=== PATIENT | female | born 2000 | race Caucasian/White ===

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

== ENCOUNTER 2020-04-23 13:02 | Emergency (ER) | payer SELFPAY ==
[2020-04-23] MEDS ORDERED: HYDROcodone 5MG/APAP 325MG 1 EA TAB PO ONE (13:23)
[2020-04-23] MEDS ORDERED: TETANUS,DIPHTHERIA,PERTUSSIS 1 EA SYG IM ONE (13:23)
--- NOTE | 2020-04-23 13:28 | ED.PDOC ---
History of Present Illness - General Chief Complaint: Skin/Abrasion/Tear Time Seen by Provider: 04/23/20 13:04 Source: patient, RN notes reviewed, Vital Signs reviewed Exam Limitations: no limitations - History of Present Illness Initial Comments: Pt presents for burn to bilateral thighs 3 days ago. States she was pouring hot tea and accidentally poured it onto her legs. Was wearing gym shorts at the time and had dickerson to bilateral anterior thighs. She has been putting a topical abx ointment on it and the size of the dickerson has improved greatly. Continues to have some pain so her friend told her she should come to ED to be evaluated. Denies fever, chills, NVD or other concerns. Allergies/Adverse Reactions: Allergies NO KNOWN ALLERGY Allergy (Verified 08/14/16 14:40) Home Medications: Ambulatory Orders Melatonin 10 mg PO BEDTIME 08/14/16 Acetaminophen W/ Codeine [Tylenol W/ CODEINE #3] 1 tablet PO Q6H PRN #20 04/23/20 Cephalexin Monohydrate [Keflex] 500 mg PO QID 10 Days #40 cap 04/23/20 Silver Sulfadiazine [Silvadene] 1 % TOP BID #1 tube 04/23/20 Review of Systems - Review of Systems Constitutional: Denies: chills, fever, weakness EENTM: Denies: nose congestion, throat pain, throat swelling Respiratory: Denies: cough, short of breath Cardiology: Denies: chest pain, palpitations, syncope Gastrointestinal/Abdominal: Denies: diarrhea, nausea, vomiting Genitourinary: States: no symptoms reported Musculoskeletal: Denies: back pain, neck pain Skin: States: see HPI Neurological: Denies: headache, paresthesia All other Systems: Reviewed and Negative Past Medical History (General) - Patient Medical History Hx Seizures: No Hx Stroke: No Hx Dementia: No Hx Asthma: Yes Hx of COPD: No Hx Cardiac Disorders: No Hx Congestive Heart Failure: No Hx Pacemaker: No Hx Hypertension: No Hx Thyroid Disease: No Hx Diabetes: No Hx Gastroesophageal Reflux: No Hx Renal Disease: No Hx Cancer: No Hx of HIV: No Hx Hepatitis C: No Hx MRSA: No - Vaccination History Hx Tetanus, Diphtheria Vaccination: Yes Hx Influenza Vaccination: No Hx Pneumococcal Vaccination: No - Social History Hx Tobacco Use: No Hx Chewing Tobacco Use: No Hx Alcohol Use: No Hx Substance Use: No Hx Substance Use Treatment: No Hx Depression: No Hx Physical Abuse: No Hx Emotional Abuse: No Hx Suspected Abuse: No - Female History Hx Last Menstrual Period: 07/01/16 Patient : No Family Medical History - Family History Grandparents Living Status: Still Living Hx Family Hypertension: Yes Hx Cardiac Disease: Yes - Hx CABG Hx Family Diabetes: Yes Physical Exam - Physical Exam General Appearance: Alert, Comfortable, No apparent distress Neck: non-tender, full range of motion, supple Respiratory: chest non-tender, lungs clear, normal breath sounds, no accessory muscle use Cardiovascular/Chest: regular rate, rhythm, no murmur Gastrointestinal/Abdominal: non tender, soft, no pulsatile mass Back Exam: no CVA tenderness, no vertebral tenderness Extremity: normal range of motion, no pedal edema, no calf tenderness Neurologic: no motor/sensory deficits, alert, normal mood/affect Skin Exam: other - Left anterior thigh has a 4x4 cm area of erythema. No vescicles, induration of drainage. There is a similar appearing area to right anterior thigh. Does not involve groin or vaginal area. Progress - Progress Progress: 04/23/20 13:30 Pt presents with partial thickness burn to BLE in anterior mid thigh region. No sign of cellulitis at this time. Update tetanus. Will start prophylactic abx, analgesia, topical ointment and f/u with pcp in 1-2 days for recheck. SRP given. Departure - Departure Clinical Impression: Partial thickness burn Time of Disposition: 13:32 Disposition: Discharge to Home or Self Care Condition: Good Departure Forms: ED Discharge - Pt. Copy, Patient Portal Self Enrollment Instructions: Skin Dickerson (DC) Diet: resume usual diet Activity: increase activity as tolerated Prescriptions: Acetaminophen W/ Codeine [Tylenol W/ CODEINE #3] 1 tablet PO Q6H PRN #20 PRN Reason: Pain Cephalexin Monohydrate [Keflex] 500 mg PO QID 10 Days #40 cap Silver Sulfadiazine [Silvadene] 1 % TOP BID #1 tube Home Medications: Ambulatory Orders Melatonin 10 mg PO BEDTIME 08/14/16 Acetaminophen W/ Codeine [Tylenol W/ CODEINE #3] 1 tablet PO Q6H PRN #20 04/23/20 Cephalexin Monohydrate [Keflex] 500 mg PO QID 10 Days #40 cap 04/23/20 Silver Sulfadiazine [Silvadene] 1 % TOP BID #1 tube 04/23/20
[2020-04-23 14:30] VITALS: BP 124/71; TEMP 98.6; O2SAT 98
== END 2020-04-23 14:28 | disposition home or self-care (01) ==
LOC: ER 13:02
DX: T24.211A Burn of second degree of right thigh, initial encounter (principal); T24.212A Burn of second degree of left thigh, initial encounter; T31.0 Burns involving less than 10% of body surface; X10.0XXA Contact with hot drinks, initial encounter; Y92.9 Unspecified place or not applicable

== ENCOUNTER 2020-06-27 22:57 | Emergency (ER) | payer SELFPAY ==
--- NOTE | 2020-06-27 23:07 | ED.PDOC ---
History of Present Illness - General Chief Complaint: Syncope/Near Syncope Stated Complaint: fainting most of day Time Seen by Provider: 06/27/20 23:07 Source: patient - History of Present Illness Initial Comments: 19 yo F comes in with the c.c of syncope 4-6 times today. States this happened when going form sitting to standing, in the shower and at work at [employer]. States she was told she was out 15 minutes. Does feel dizzy before passing out. Denies loss of urine or bowel. No seizure like activity described. Did not bite tongue. Denies cardiac hx. States her family hx is limited, but she is not aware of any cardiac or early spontaneous in her family. Denies hitting head. 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 Had an MRI of brain in 2018 which was normal. Does not have PCP. No chest pain, shortness of breath, n/v/d. no excessive sweating, weight loss, weight gain, edema. no recent travel or recent illness. Timing/Prior Episodes: multiple episodes today Precipitating Factors: lightheadedness Context: standing, activity Loss of Consciousness: prolonged (minutes) Allergies/Adverse Reactions: Allergies NO KNOWN ALLERGY Allergy (Verified 08/14/16 14:40) Home Medications: Ambulatory Orders Acetaminophen W/ Codeine [Tylenol W/ CODEINE #3] 1 tablet PO Q6H PRN #20 04/23/20 Cephalexin Monohydrate [Keflex] 500 mg PO QID 10 Days #40 cap 04/23/20 Silver Sulfadiazine [Silvadene] 1 % TOP BID #1 tube 04/23/20 Past Medical History (General) - Patient Medical History Hx Seizures: No Hx Stroke: No Hx Dementia: No Hx Asthma: Yes Hx of COPD: No Hx Cardiac Disorders: No Hx Congestive Heart Failure: No Hx Pacemaker: No Hx Hypertension: No Hx Thyroid Disease: No Hx Diabetes: No Hx Gastroesophageal Reflux: No Hx Renal Disease: No Hx Cancer: No Hx of HIV: No Hx Hepatitis C: No Hx MRSA: No - Vaccination History Hx Tetanus, Diphtheria Vaccination: Yes Hx Influenza Vaccination: No Hx Pneumococcal Vaccination: No - Social History Hx Tobacco Use: No Hx Chewing Tobacco Use: No Hx Alcohol Use: No Hx Substance Use: No Hx Substance Use Treatment: No Hx Depression: No Hx Physical Abuse: No Hx Emotional Abuse: No Hx Suspected Abuse: No - Female History Hx Last Menstrual Period: 07/01/16 Patient : No Progress - Progress Progress: EKG shows NSR HR 92, normal intervals, no ischemia, no delta wave or prolong qt. Will on the monitor I notice that patients has long pauses heart rate drops from 90s to 46. The change in heart rate is associated with p wave inversions, while her normal beats have upright p waves. This occurs more often while patient is moving. Orthostatics shows increased in heart rate from lying to sitting 88-103, but no change in blood pressure. Will check TSH, electrolytes in mg, hcg, cxr. Due to her history of periventricular nodular heterotopia ordered CT scan. Seizure precautions. Blood work grossly unremarkable. Discussed case with Dr. Cardona who accepted for transfer. The data reviewed when caring for this patient included: nurse notes, prior records etc. The history and assessments from nurses notes were reviewed and considered, and the patient's home medication list was also reviewed and considered. My assessment and the results of testing completed here in the ED were discussed with the patient. All questions were answered, and they express understanding of my assessment and the plan. She was transferred in stable condition. I have sent copies of the abnormal rhythm strip for accepting team to evaluate. - Results/Orders Results/Orders: CT head and brain without contrast: FINDINGS: Brain: No significant white matter changes. No focal mass effect. Harrison-white matter differentiation is within normal limits. No hemorrhage. Ventricles: No ventriculomegaly or midline shift. Extra-axial spaces: No extra-axial collection or hemorrhage. Paranasal sinuses and mastoid air cells: Minimal bilateral maxillary sinus mucosal thickening. Small left maxillary mucous retention cyst/polyp. Vessels: Unremarkable Bones: Unremarkable Soft tissues: Unremarkable IMPRESSION: No acute intracranial or extra-axial abnormality. Chest X-ray (2 view): no acute cardiopulmonary abnormalities. 06/27/20 23:15 EKG STAT 06/27/20 23:15 EKG STAT 06/27/20 23:16 Head [CT] Stat Chest,2 Views [RAD] Stat 06/27/20 23:18 Sodium Chloride 0.9% 1000ML [Ns 1000 ml] 1,000 ml IVS STAT 06/27/20 23:47 Vital Signs-Tilt PRN 06/28/20 00:14 KCl 20Meq/Water For Inj 100Ml [Potassium 20meq in Water 100ml] 20 meq Premix Bag 1 bag IVPB ONCE Laboratory Results WBC 6.4 K/mm3 (4.8-10.8) 06/27/20 23:36 RBC 4.62 M/mm3 (4.20-5.40) 06/27/20 23:36 Hgb 12.7 gm/dL (12.0-16.0) 06/27/20 23:36 Hct 37.5 % (36.0-47.0) 06/27/20 23:36 MCV 81.1 fl (81.0-99.0) 06/27/20 23:36 MCH 27.5 pg (27.0-31.0) 06/27/20 23:36 MCHC 34.0 g/dL (33.0-37.0) 06/27/20 23:36 RDW 14.8 % (11.5-14.5) H 06/27/20 23:36 Plt Count 289 K/mm3 (130-400) 06/27/20 23:36 MPV 6.7 fl (7.40-10.4) L 06/27/20 23:36 Absolute Neuts (auto) 4.40 K/uL (1.8-6.8) 06/27/20 23:36 Absolute Lymphs (auto) 1.50 K/uL (1.0-3.4) 06/27/20 23:36 Absolute Monos (auto) 0.40 K/uL (0.2-0.8) 06/27/20 23:36 Absolute Eos (auto) 0.00 K/uL (0.0-0.4) 06/27/20 23:36 Absolute Basos (auto) 0.00 K/uL (0.0-0.1) 06/27/20 23:36 Neutrophils % 68.5 % (42.0-78.0) 06/27/20 23:36 Lymphocytes % 24.2 % (20.0-50.0) 06/27/20 23:36 Monocytes % 6.4 % (2.0-9.0) 06/27/20 23:36 Eosinophils % 0.5 % (1.0-5.0) L 06/27/20 23:36 Basophils % 0.4 % (0.0-2.0) 06/27/20 23:36 PT 10.4 SECONDS (9.0-10.9) 06/27/20 23:36 INR 1.05 (0.9-1.15) 06/27/20 23:36 PTT (SP) 25.2 SECONDS (21.8-31.6) 06/27/20 23:36 Sodium 137 mmol/L (135-145) 06/27/20 23:36 Potassium 3.3 mmol/L (3.6-5.0) L 06/27/20 23:36 Chloride 106 mmol/L (101-111) 06/27/20 23:36 Carbon Dioxide 24 mmol/L (21-31) 06/27/20 23:36 Anion Gap 10.3 (12-18) L 06/27/20 23:36 BUN 10 mg/dL (7-18) 06/27/20 23:36 Creatinine 0.71 mg/dL (0.6-1.3) 06/27/20 23:36 BUN/Creatinine Ratio 14.1 (10-20) 06/27/20 23:36 POC Glucose 98 mg/dL (70-105) 06/27/20 23:08 Random Glucose 99 mg/dL (70-105) 06/27/20 23:36 Serum Osmolality 272.9 mOsm/L (275-295) L 06/27/20 23:36 Calcium 9.3 mg/dL (8.4-10.2) 06/27/20 23:36 Magnesium 1.8 mg/dL (1.8-2.5) 06/27/20 23:36 Total Bilirubin 0.5 mg/dL (0.2-1.0) 06/27/20 23:36 AST 20 IU/L (10-42) 06/27/20 23:36 ALT 14 IU/L (10-60) 06/27/20 23:36 Alkaline Phosphatase 40 IU/L (180-700) L 06/27/20 23:36 Troponin I < 0.02 ng/mL (0.01-0.05) 06/27/20 23:36 C-Reactive Protein < 0.5 mg/dL (0-1.0) 06/27/20 23:36 Serum Total Protein 7.7 gm/dL (6.4-8.2) 06/27/20 23:36 Albumin 4.4 g/dl (3.2-5.5) 06/27/20 23:36 Globulin 3.3 gm/dL (2.3-3.5) 06/27/20 23:36 Albumin/Globulin Ratio 1.3 (1.1-1.9) 06/27/20 23:36 TSH 0.77 uIU/mL (0.34-5.60) 06/27/20 23:36 Urine Color Yellow (Yellow) 06/27/20 23:36 Urine Appearance Cloudy (Clear) 06/27/20 23:36 Urine pH 7.5 (4.5-7.8) 06/27/20 23:36 Ur Specific [place] 1.020 (1.005-1.030) 06/27/20 23:36 Urine Protein Negative mg/dL 06/27/20 23:36 Urine Glucose (UA) Negative mg/dL (Negative) 06/27/20 23:36 Urine Ketones Trace mg/dL (NEGATIVE) 06/27/20 23:36 Urine Blood Negative (Negative) 06/27/20 23:36 Urine Nitrite Negative 06/27/20 23:36 Urine Bilirubin Negative (NEGATIVE) 06/27/20 23:36 Urine Urobilinogen 2.0 mg/dL (0.2-1.0) H 06/27/20 23:36 Ur Leukocyte Esterase Negative (Negative) 06/27/20 23:36 Urine RBC 0 /hpf 06/27/20 23:36 Urine WBC 3-5 /hpf H 06/27/20 23:36 Ur Epithelial Cells 5-10 /hpf 06/27/20 23:36 Urine Bacteria Rare 06/27/20 23:36 Urine Mucus Small 06/27/20 23:36 Urine HCG, Qual Negative (NEGATIVE) 06/27/20 23:36 Urine Opiates Screen Negative ng/mL (1999) 06/27/20 23:36 Urine Barbiturates Negative ng/mL (200) 06/27/20 23:36 Ur Phencyclidine Scrn Negative ng/mL (25) 06/27/20 23:36 U Amphetamin/Meth Scrn Negative ng/mL (1000) 06/27/20 23:36 U Benzodiazepines Scrn Negative ng/mL (200) 06/27/20 23:36 U Cocaine Metab Screen Negative ng/mL (300) 06/27/20 23:36 U Cannabinoids Screen Positive ng/mL (50) H 06/27/20 23:36 Ethyl Alcohol < 5.40 mg/dL (0-79) 06/27/20 23:36 - Consult/PCP Time Called: 00:20 Consult Reason/Comments: Dr. Cardona Departure - Departure Clinical Impression: Ectopic beat, atrial, Hypokalemia Syncope Qualifiers: Syncope type: unspecified Qualified Code(s): R55 - Syncope and collapse Disposition: Transfer to Hospital Condition: Fair Departure Forms: ED Discharge - Pt. Copy, Patient Portal Self Enrollment Home Medications: Ambulatory Orders Acetaminophen W/ Codeine [Tylenol W/ CODEINE #3] 1 tablet PO Q6H PRN #20 04/23/20 Cephalexin Monohydrate [Keflex] 500 mg PO QID 10 Days #40 cap 04/23/20 Silver Sulfadiazine [Silvadene] 1 % TOP BID #1 tube 04/23/20 Transfer to Outside Facility - Transfer Information Decision to Transfer Date: 06/28/20 Decision to Transfer Time: 00:10 Reason for Transfer: specialized care not available - cardiology Accepting Facility: [facility]
[2020-06-27] MEDS ORDERED: SODIUM CHLORIDE 0.9% (FLUSH) 10 ML SYG ONE (23:29)
[2020-06-27] MEDS: SODIUM CHLORIDE 0.9% 1000ML 1,000 ML IVS PRN (23:40)
[2020-06-28] MEDS: KCL 20MEQ/WATER FOR INJ 100ML 20 MEQ in PREMIX BAG 1 BAG IVPB ONE (00:27)
[2020-06-28 00:59] VITALS: TEMP 97.9; O2SAT 100
[2020-06-28] MEDS ORDERED: SODIUM CHLORIDE 0.9% 1000ML 1,000 ML ONE (01:19)
[2020-06-28 04:12] VITALS: BP 123/78
--- NOTE | 2020-06-28 05:30 | RAD ---
EXAM: XR Chest, 2 Views CLINICAL HISTORY: The patient is 19 years old and is Female; shortness of breath TECHNIQUE: Frontal and lateral views of the chest. COMPARISON: No relevant prior studies available. FINDINGS: LUNGS: Unremarkable. No consolidation. PLEURAL SPACE: Unremarkable. No pneumothorax. HEART: No significant enlargement of the cardiac silhouette. MEDIASTINUM: Unremarkable. BONES/JOINTS: No acute osseous findings. IMPRESSION: No acute findings visualized in the chest. Electronically signed by: Belia Veliz MD 06/28/2020 12:28 AM CDT
--- NOTE | 2020-06-28 05:30 | CT ---
PROCEDURE: CT HEAD WITHOUT IV CONTRAST CLINICAL HISTORY: hx of brain tumor TECHNIQUE: Contiguous axial CT images obtained through the brain without IV contrast. Coronal and sagittal reformatted images were provided. This exam was performed according to our departmental dose-optimization program, which includes automated exposure control, adjustment of the mA and/or kV according to patient size and/or use of iterative reconstruction technique. COMPARISON: Correlation is made with brain MR dated 11/25/2018 FINDINGS: Brain: No significant white matter changes. No focal mass effect. Harrison-white matter differentiation is within normal limits. No hemorrhage. Ventricles: No ventriculomegaly or midline shift. Extra-axial spaces: No extra-axial collection or hemorrhage. Paranasal sinuses and mastoid air cells: Minimal bilateral maxillary sinus mucosal thickening. Small left maxillary mucous retention cyst/polyp. Vessels: Unremarkable Bones: Unremarkable Soft tissues: Unremarkable IMPRESSION: No acute intracranial or extra-axial abnormality. Electronically signed by: Marian Cabral MD 06/28/2020 12:27 AM CDT
== END 2020-06-28 01:19 | disposition short-term general hospital (02) ==
LOC: ER 22:57
DX: I49.1 Atrial premature depolarization (principal); R55 Syncope and collapse; E87.6 Hypokalemia; R42 Dizziness and giddiness; F12.90 Cannabis use, unspecified, uncomplicated; J45.909 Unspecified asthma, uncomplicated
CPT/HCPCS: 36415; 70450; 71046; 80053; 80307; 80320; 81001; 81025; 82948; 83735; 84443; 84484; 85025; 85610; 85730; 86140; 87635; 93005; A4216; J3480; J7030

== ENCOUNTER 2020-12-09 11:00 | Emergency (ER) | payer SELFPAY ==
[2020-12-09] MEDS ORDERED: HYDROcodone 10MG/APAP 325MG 1 EA TAB PO ONE (11:50)
--- NOTE | 2020-12-09 11:59 | ED.PDOC ---
History of Present Illness - General Chief Complaint: Laceration Stated Complaint: laceration to lip,syncopal episode Time Seen by Provider: 12/09/20 11:47 Source: patient, family Additional Information: 20F with PMH significant for pseudotumor cerebri presents to the ED with syncopal episode and lip laceration. States that she has recurrent syncopal episodes related to positional changes including bending forward or rising from sleeping/sitting too quicly. She states that today she stood and started to feel dizzy and fell, hitting her head and face. She reports only brief LOC for a second or two if any. She denies any chest pain, palpitations, or shortness of breath. She complains of laceration to lip. No neck pain. no weakness, numbness or tingling. No other complaints at this time. - History of Present Illness Allergies/Adverse Reactions: Allergies NO KNOWN ALLERGY Allergy (Verified 08/14/16 14:40) Home Medications: Ambulatory Orders Cephalexin 500 mg PO BID #14 cap 12/09/20 Review of Systems - Review of Systems Constitutional: Denies: chills, fever EENTM: States: mouth pain - dental pain, laceration. Denies: eye pain, nose pain Respiratory: Denies: cough, short of breath Cardiology: Denies: chest pain, palpitations Gastrointestinal/Abdominal: Denies: abdominal pain, diarrhea, nausea, vomiting Genitourinary: Denies: discharge, dysuria, frequency Musculoskeletal: States: no symptoms reported Skin: States: no symptoms reported Neurological: Denies: headache, numbness, paresthesia, tingling, tremors, weakness Endocrine: States: no symptoms reported Hematologic/Lymphatic: States: no symptoms reported All other Systems: Reviewed and Negative Past Medical History (General) - Patient Medical History Hx Seizures: No Hx Stroke: No Hx Dementia: No Hx Asthma: Yes Hx of COPD: No Hx Cardiac Disorders: No Hx Congestive Heart Failure: No Hx Pacemaker: No Hx Hypertension: No Hx Thyroid Disease: No Hx Diabetes: No Hx Gastroesophageal Reflux: No Hx Renal Disease: No Hx Cancer: No Hx of HIV: No Hx Hepatitis C: No Hx MRSA: No Surgical History: no surgical history - Vaccination History Hx Tetanus, Diphtheria Vaccination: Yes - 04/19 Hx Influenza Vaccination: No Hx Pneumococcal Vaccination: No - Social History Hx Tobacco Use: No Hx Chewing Tobacco Use: No Hx Alcohol Use: No Hx Substance Use: No Hx Substance Use Treatment: No Hx Depression: No Hx Physical Abuse: No Hx Emotional Abuse: No Hx Suspected Abuse: No - Female History Hx Last Menstrual Period: 07/01/16 Patient : No Family Medical History - Family History Grandparents Living Status: Still Living Hx Family Hypertension: Yes Hx Cardiac Disease: Yes - Hx CABG Hx Family Diabetes: Yes Physical Exam - Physical Exam General Appearance: Anxious, No apparent distress Ears, Nose, Throat: hearing grossly normal, other - 1cm laceration to lower lip. Not through and through. Does not cross vermilion border. 0.5cm laceration to mucosal surface. Poor dentition but patient reports baseline, no loose teeth. Neck: non-tender, full range of motion, supple, normal inspection Respiratory: chest non-tender, lungs clear, normal breath sounds Cardiovascular/Chest: normal peripheral pulses, regular rate, rhythm Gastrointestinal/Abdominal: non tender, soft Neurologic: clinical studies specialist II-XII nml as tested, no motor/sensory deficits, alert, normal mood/affect, oriented x 3 Skin Exam: normal color Progress - Progress Progress: 12/09/20 13:08 Patient reassessed, feels better after analgesia. Laceration is not through and through and does not involve vermilion border, will allow to heal without suture repair. She has urinary tract infection. Will start augmentin for oral laceration infection prophylaxis and UTI. She will follow up with dentistry and her PCP, return to ED as needed. Home care instructions and return indications reviewed. - Results/Orders Results/Orders: 12/09/20 12:09 URINE CULTURE W/COLONY COUNT Stat Laboratory Results - last 24 hr 12/09/20 12/09/20 12/09/20 11:55 11:55 11:55 WBC 7.9 RBC 4.74 Hgb 12.9 Hct 38.3 MCV 80.9 L MCH 27.3 MCHC 33.7 RDW 15.4 H Plt Count 309 MPV 7.0 L Absolute Neuts (auto) 6.20 Absolute Lymphs (auto) 1.20 Absolute Monos (auto) 0.40 Absolute Eos (auto) 0.00 Absolute Basos (auto) 0.10 Neutrophils % 78.7 H Lymphocytes % 15.3 L Monocytes % 4.5 Eosinophils % 0.3 L Basophils % 1.2 Sodium 136 Potassium 3.9 Chloride 104 Carbon Dioxide 23 Anion Gap 12.9 BUN 13 Creatinine 0.80 BUN/Creatinine Ratio 16.3 Random Glucose 121 H Serum Osmolality 273.3 L Calcium 9.6 Serum HCG, Qual Negative Urine Color Urine Appearance Urine pH Ur Specific [place] Urine Protein Urine Glucose (UA) Urine Ketones Urine Blood Urine Nitrite Urine Bilirubin Urine Urobilinogen Ur Leukocyte Esterase Urine RBC Urine WBC Ur Epithelial Cells Urine Bacteria Urine Mucus 12/09/20 12:09 WBC RBC Hgb Hct MCV MCH MCHC RDW Plt Count MPV Absolute Neuts (auto) Absolute Lymphs (auto) Absolute Monos (auto) Absolute Eos (auto) Absolute Basos (auto) Neutrophils % Lymphocytes % Monocytes % Eosinophils % Basophils % Sodium Potassium Chloride Carbon Dioxide Anion Gap BUN Creatinine BUN/Creatinine Ratio Random Glucose Serum Osmolality Calcium Serum HCG, Qual Urine Color Yellow Urine Appearance Cloudy H Urine pH 6.0 Ur Specific [place] >= 1.030 Urine Protein Negative Urine Glucose (UA) Negative Urine Ketones Trace Urine Blood Negative Urine Nitrite Positive H Urine Bilirubin Negative Urine Urobilinogen 0.2 Ur Leukocyte Esterase Negative Urine RBC 0 Urine WBC 0 Ur Epithelial Cells 1-3 Urine Bacteria 4+ H Urine Mucus Moderate Medical Decision Making: The patient presents with lip laceration, syncope. Has recurrent positional/orthostatic syncope. No focal neurologic deficits or lateralizing findings. No through and through laceration and does not involve vermilion border. No active bleeding. Will continue local wound care, no suture required at this time. Antibiotics for infection prevention and urinary tract infection. Discussed detailed wound care, outpatient follow up and return indications. Departure - Departure Clinical Impression: Syncope Qualifiers: Syncope type: unspecified Qualified Code(s): R55 - Syncope and collapse Urinary tract infection Qualifiers: Urinary tract infection type: acute cystitis Hematuria presence: without hematuria Qualified Code(s): N30.00 - Acute cystitis without hematuria Lip laceration Qualifiers: Encounter type: initial encounter Qualified Code(s): S01.511A - Laceration without foreign body of lip, initial encounter Time of Disposition: 13:10 Disposition: Discharge to Home or Self Care Condition: Good Departure Forms: ED Discharge - Pt. Copy, ED Discharge - Work Release, Patient Portal Self Enrollment, Work Release Form Instructions: DI for Laceration Repair, Syncope (Fainting) (DC), Vasovagal Response (DC) Diet: resume usual diet Activity: increase activity as tolerated Prescriptions: Cephalexin 500 mg PO BID #14 cap Home Medications: Ambulatory Orders Cephalexin 500 mg PO BID #14 cap 12/09/20
[2020-12-09 13:31] VITALS: BP 118/75; TEMP 98.3; O2SAT 99
== END 2020-12-09 13:31 | disposition home or self-care (01) ==
LOC: ER 11:00
DX: S01.511A Laceration without foreign body of lip, initial encounter (principal); R55 Syncope and collapse; N30.00 Acute cystitis without hematuria; G93.2 Benign intracranial hypertension; J45.909 Unspecified asthma, uncomplicated; W18.39XA Other fall on same level, initial encounter; Y92.9 Unspecified place or not applicable